=== PATIENT | male | born 1990 ===

== ENCOUNTER 2017-06-19 00:04 | Emergency (ER) | payer OTHER ==
[2017-06-19] MEDS ORDERED: diPHENhydraMINE IV* 50 MG/ML 1 ml VIAL (BENADRYL) IV ONE (00:29)
[2017-06-19] MEDS ORDERED: Famotidine IV* 10 MG/ML 2 ML (20 mg) IV SLOW PU ONE (00:29)
[2017-06-19] MEDS ORDERED: methylPREDNISolone 125 MG* 2 ML VIAL IV ONE (00:29)
[2017-06-19] MEDS ORDERED: diPHENhydraMINE PO* 25 MG PO ONE (00:35)
[2017-06-19] MEDS ORDERED: predniSONE TAB* 20 MG PO ONE (00:35)
[2017-06-19] MEDS ORDERED: Famotidine TAB* 20 MG PO ONE (00:36)
--- NOTE | 2017-06-19 01:21 | ED ---
Allergic Reaction/Systemic - HPI Summary HPI Summary: 26M presents with allergic reaction today. He ate some pecans today and has anaphylactic reaction to walnuts. He states he felt similar to what he does when he eats walnuts. So took dose of Benadryl. states throat feels scratchy. He states that it is harder to swallow but is still able to do so. He admits to mild SOB. He denies any chest pain, rash, abdominal pain, nausea or vomiting. He states feels better since took Benadryl. He did not take his epipen. He states did not have a true anaphylactic reaction to walnuts but did have one to bees. - History of Current Complaint Chief Complaint: EDAllergicReaction Time Seen by Provider: 06/19/17 00:28 Pain Intensity: 0 - Allergies/Home Medications Allergies/Adverse Reactions: Allergies Allergy/AdvReac Type Severity Reaction Status Date / Time walnuts Allergy Anaphylatic Uncoded 06/19/17 00:10 Shock PMH/Surg Hx/FS Hx/Imm Hx Endocrine/Hematology History: Denies: Hx Diabetes, Hx Thyroid Disease Cardiovascular History: Denies: Hx Hypertension Respiratory History: Denies: Hx Asthma, Hx Chronic Obstructive Pulmonary Disease (COPD) GI History: Denies: Hx Ulcer Psychiatric History: Reports: Other Psychiatric Issues/Disorders - ADD - Surgical History Surgery Procedure, Year, and Place: wisdom teeth - Immunization History Date of Tetanus Vaccine: UTD Date of Influenza Vaccine: unk Infectious Disease History: No Infectious Disease History: Denies: Hx Clostridium Difficile, Hx Hepatitis, Hx Human Immunodeficiency Virus (HIV), Hx of Known/Suspected MRSA, Hx Shingles, Hx Tuberculosis, Hx Known/ Suspected VRE, Hx Known/Suspected VRSA, History Other Infectious Disease, Traveled Outside the [place] in Last 30 Days - Family History Known Family History: Positive: Hypertension Negative: Cardiac Disease - Social History Alcohol Use: Daily Alcohol Amount: 1-3 per night Substance Use Type: Reports: Marijuana Substance Use Comment - Amount & Last Used: most nights Smoking Status (MU): Never Smoked Tobacco Review of Systems Negative: Fever Positive: Sore Throat Negative: Chest Pain Positive: Shortness Of Breath All Other Systems Reviewed And Are Negative: Yes Physical Exam Triage Information Reviewed: Yes Vital Signs On Initial Exam: Initial Vitals Temp Pulse Resp BP Pulse Ox 97.7 F 95 18 141/88 97 06/19/17 00:07 06/19/17 00:07 06/19/17 00:07 06/19/17 00:07 06/19/17 00:07 Vital Signs Reviewed: Yes Appearance: Positive: Well-Appearing Skin: Positive: Warm, Dry Head/Face: Positive: Normal Head/Face Inspection Eyes: Positive: Normal, EOMI, MADYSON, Conjunctiva Clear ENT: Positive: Normal ENT inspection, Pharynx normal, TMs normal Respiratory/Lung Sounds: Positive: Clear to Auscultation, Breath Sounds Present Cardiovascular: Positive: Normal, RRR Abdomen Description: Positive: Nontender, Soft Bowel Sounds: Positive: Present Musculoskeletal: Positive: Normal Neurological: Positive: Normal Psychiatric: Positive: Normal - [place] Coma Scale Coma Scale Total: 15 Diagnostics - Vital Signs Vital Signs Temp Pulse Resp BP Pulse Ox 06/19/17 00:27 93 16 139/80 97 06/19/17 00:07 97.7 F 95 18 141/88 97 - Laboratory Lab Statement: Any lab studies that have been ordered have been reviewed, and results considered in the medical decision making process. Re-Evaluation - Re-Evaluation First Eval Re-Evaluation Time: 01:55 Change: Improved Comment: feeling better, lungs still CTA Allergic Reaction Course/Dx - Course Course Of Treatment: 26M presents with allergic reaction today. He ate some pecans today and has anaphylactic reaction to walnuts. He states he felt similar to what he does when he eats walnuts. So took dose of Benadryl. states throat feels scratchy. He states that it is harder to swallow but is still able to do so. He admits to mild SOB. He denies any chest pain, rash, abdominal pain, nausea or vomiting. He states feels better since took Benadryl. He did not take his epipen. He states did not have a true anaphylactic reaction to walnuts but did have one to bees. on exam lungs CTA. pharynx normal. no resp distress. tolerating sections. vitals stable. gave oral dose of prednisone, another bendaryl and famotidine and observed for two hours. patient felt better and did not have an anphyaltic reaction in the ED. will have continue benadryl and steriod. patient understand and agrees with plan. - Diagnoses Differential Diagnosis/HQI/PQRI: Positive: Airway Obstruction, Anaphylaxis, Local Allergic Reaction Provider Diagnoses: Allergic reaction Discharge - Discharge Plan Condition: Good Disposition: HOME Prescriptions: predniSONE TAB* [Deltasone TAB*] 40 mg PO DAILY #4 tab Patient Education Materials: General Allergic Reaction (ED) Referrals: Renu Nguyen MD [Primary Care Provider] - Additional Instructions: Take Benadryl every 6 hours for next 24 hours Take steroid once a day for 4 days starting tomorrow Return to ED if shortness of breath, chest pain, or if develop any new or worsening symptoms
[2017-06-19 01:23] VITALS: BP 118/68
== END 2017-06-19 02:31 | disposition home or self-care (01) ==
LOC: ED 00:04
DX: T78.05XA Anaphylactic reaction due to tree nuts and seeds, initial encounter (principal); R06.02 Shortness of breath
CPT/HCPCS: 96374; 96375; 99282; A9270-GY; J7512